=== PATIENT | female | born 1975 | race American Indian/Alaskan Native ===

== ENCOUNTER 2017-08-17 00:32 | Emergency (ER) | payer OTHER ==
[2017-08-17] MEDS ORDERED: TYLENOL PO ONE (00:53)
--- NOTE | 2017-08-17 03:51 | Cat Scan Report ---
FINAL REPORT EXAM: CT HEAD/BRAIN WO CON HISTORY: headache TECHNIQUE: Routine axial imaging was obtained of the brain without IV contrast. FINDINGS: The ventricular system is appropriate in size and is symmetric. There is no evidence of acute stroke or hemorrhage. The basal cisterns appear normal. The visualized sinuses are clear. The mastoid air cells are well pneumatized. IMPRESSION: Within normal limits.
[2017-08-17 08:15] LABS: Eosinophils # (Auto) 0.1 K/mm3 (0.0-0.4); Eosinophils % (Auto) 3.5 % (0.0-4.3); Hematocrit 36.9 % (30.3-42.9); Hemoglobin 11.6 gm/dl (10.1-14.3); Lymphocytes # (Auto) 2.2 K/mm3 (1.2-5.4); Lymphocytes % (Auto) 52.4 % (13.4-35.0); Mean Corpuscular HGB Conc 31 % (30-34); Mean Corpuscular Volume 73 fl (79-97); Monocytes # (Auto) 0.3 K/mm3 (0.0-0.8); Monocytes % (Auto) 7.8 % (0.0-7.3); Platelet Count 233 K/mm3 (140-440); Red Blood Count 5.07 M/mm3 (3.65-5.03); Red Cell Distribution Width 14.6 % (13.2-15.2)
[2017-08-17 08:22] LABS: Alanine Aminotransferase 16 units/L (7-56); Albumin 3.3 g/dL (3.9-5); BUN/Creatinine Ratio 12; Bilirubin,Direct < 0.2 mg/dL (0-0.2); Blood Urea Nitrogen 6 mg/dL (7-17); Calcium 8.3 mg/dL (8.4-10.2); Hemolysis Index 33
[2017-08-17 08:25] LABS: INR 1.03 (0.87-1.13)
[2017-08-17 08:26] LABS: Partial Thromboplastin Time 31.5 Sec. (24.2-36.6)
[2017-08-17 08:35] LABS: Mean Corpuscular Hemoglobin 23 pg (28-32)
[2017-08-17 09:25] LABS: Erythrocyte Sedimentation Rate 6 mm/Hr (0-20)
--- NOTE | 2017-08-17 09:48 | Emergency Department Report ---
ED Headache HPI - General Chief Complaint: Headache Stated Complaint: HEADACHE Time Seen by Provider: 08/17/17 06:18 Source: patient - History of Present Illness Initial Comments: 42-year-old female states that for the last 4 days she has been having posterior neck discomfort that some times radiates up to the right posterior occipital area. Pain is intermittent and somewhat exacerbated by movement. The patient denies fever or chills. She has not had photophobia. She does not have any neck stiffness or difficulty moving her neck. She denies nausea or vomiting. She denies any sort of focal neurological change or change in her vision or speech. She has no difficulty with coordination or gait. Timing/Duration: other (4 days) Quality: moderate Head Injury Location: occipital Recent Head Trauma: chronic headaches (not infrequent headaches) Associated Symptoms: denies symptoms Allergies/Adverse Reactions: Allergies No Known Allergies Allergy (Verified 08/17/17 00:50) Home Medications: Ambulatory Orders Butalb/Acetamin/Caff 50-325-40 [Fioricet] 1 tab PO Q6HR PRN #14 tab 08/17/17 ED Review of Systems ROS: Stated complaint: HEADACHE Other details as noted in HPI Constitutional: denies: chills, fever Eyes: denies: eye pain, eye discharge, vision change ENT: denies: ear pain, throat pain Respiratory: denies: cough, shortness of breath, wheezing Cardiovascular: denies: chest pain, palpitations Endocrine: no symptoms reported Gastrointestinal: denies: abdominal pain, nausea, diarrhea Genitourinary: denies: urgency, dysuria, discharge Musculoskeletal: denies: back pain, joint swelling, arthralgia Skin: denies: rash, lesions Neurological: headache. denies: weakness, paresthesias Psychiatric: denies: anxiety, depression Hematological/Lymphatic: denies: easy bleeding, easy bruising ED Past Medical Hx - Past Medical History Previous Medical History?: No - Surgical History Past Surgical History?: No - Social History Smoking Status: Never Smoker Substance Use Type: None - Medications Home Medications: Home Medications Medication Instructions Recorded Confirmed Last Taken Type Butalb/Acetamin/Caff 50-325-40 1 tab PO Q6HR PRN #14 tab 08/17/17 Unknown Rx [Fioricet] ED Physical Exam - General Limitations: No Limitations General appearance: alert, in no apparent distress - Head Head exam: Present: atraumatic, normocephalic - Eye Eye exam: Present: normal appearance, PERRL, EOMI. Absent: scleral icterus - ENT ENT exam: Present: mucous membranes moist - Neck Neck exam: Present: normal inspection. Absent: tenderness, meningismus - Respiratory Respiratory exam: Present: normal lung sounds bilaterally. Absent: respiratory distress - Cardiovascular Cardiovascular Exam: Present: regular rate, normal rhythm. Absent: systolic murmur, diastolic murmur, rubs, gallop - GI/Abdominal GI/Abdominal exam: Present: soft, normal bowel sounds. Absent: distended, tenderness, guarding, rebound, rigid - Extremities Exam Extremities exam: Present: normal inspection, full ROM, normal capillary refill. Absent: tenderness, calf tenderness - Back Exam Back exam: Present: normal inspection. Absent: CVA tenderness (R), CVA tenderness (L), muscle spasm, paraspinal tenderness, vertebral tenderness - Neurological Exam Neurological exam: Present: alert, oriented X3, CN II-XII intact. Absent: motor sensory deficit - Psychiatric Psychiatric exam: Present: normal affect, normal mood - Skin Skin exam: Present: warm, dry, intact, normal color. Absent: rash ED Course Vital Signs 08/17/17 08/17/17 08/17/17 00:33 02:36 03:00 Temperature 98.6 F 98.4 F Pulse Rate 64 58 L Respiratory 18 19 Rate Blood Pressure 123/61 113/75 Blood Pressure 127/75 [Left] O2 Sat by Pulse 99 99 100 Oximetry 08/17/17 08/17/17 08/17/17 04:03 05:00 06:00 Temperature Pulse Rate Respiratory Rate Blood Pressure 119/78 119/78 136/86 Blood Pressure [Left] O2 Sat by Pulse 100 100 100 Oximetry 08/17/17 08/17/17 08/17/17 07:15 07:17 08:01 Temperature 97.7 F Pulse Rate 60 46 L Respiratory 17 22 Rate Blood Pressure 134/78 119/71 Blood Pressure 134/78 [Left] O2 Sat by Pulse 100 100 98 Oximetry - Reevaluation(s) Reevaluation #1: The patient didn't really require any significant analgesia in the emergency department. Her headache resolved. He is resting comfortably with her or significant other. She looks well and certainly nontoxic. She is appropriate for outpatient management. I do not think the patient's slightly elevated lactic acid level is significant. She has no evidence of service. Her white count is normal and her see our he is normal. Her CRP is normal 08/17/17 09:53 ED Medical Decision Making - Lab Data Result diagrams: 08/17/17 07:28 08/17/17 07:28 Laboratory Results - last 24 hr 08/17/1718 08/17/17 07:28 07:28 07:28 WBC 4.2 L RBC 5.07 H Hgb 11.6 Hct 36.9 MCV 73 L MCH 23 L MCHC 31 RDW 14.6 Plt Count 233 Lymph % (Auto) 52.4 H Eddy % (Auto) 7.8 H Eos % (Auto) 3.5 Baso % (Auto) 1.0 Lymph # 2.2 Eddy # 0.3 Eos # 0.1 Baso # 0.0 Seg Neutrophils % 35.3 L Seg Neutrophils # 1.5 L ESR 6 PT 14.0 INR 1.03 APTT 31.5 Sodium 140 Potassium 4.0 Chloride 102.8 Carbon Dioxide 24 Anion Gap 17 BUN 6 L Creatinine 0.5 L Estimated GFR > 60 BUN/Creatinine Ratio 12 Glucose 70 Lactic Acid Calcium 8.3 L Total Bilirubin 0.30 Direct Bilirubin < 0.2 AST 21 ALT 16 Alkaline Phosphatase 49 C-Reactive Protein 0.10 Total Protein 6.6 Albumin 3.3 L Albumin/Globulin Ratio 1.0 08/17/17 07:28 WBC RBC Hgb Hct MCV MCH MCHC RDW Plt Count Lymph % (Auto) Eddy % (Auto) Eos % (Auto) Baso % (Auto) Lymph # Eddy # Eos # Baso # Seg Neutrophils % Seg Neutrophils # ESR PT INR APTT Sodium Potassium Chloride Carbon Dioxide Anion Gap BUN Creatinine Estimated GFR BUN/Creatinine Ratio Glucose Lactic Acid 2.10 H* Calcium Total Bilirubin Direct Bilirubin AST ALT Alkaline Phosphatase C-Reactive Protein Total Protein Albumin Albumin/Globulin Ratio - Radiology Data Radiology results: report reviewed (CT the head no acute process) Critical care attestation.: If time is entered above; I have spent that time in minutes in the direct care of this critically ill patient, excluding procedure time. ED Disposition Clinical Impression: Cephalalgia Qualifiers: Headache type: unspecified Headache chronicity pattern: chronic headache Intractability: not intractable Qualified Code(s): R51 - Headache Disposition: DC-01 TO HOME OR SELFCARE Is pt being admited?: No Does the pt Need Aspirin: No Condition: Stable Instructions: Acute Headache (ED) Additional Instructions: Return to the emergency department had a fever or chills, vomiting or worsening headache. Further evaluation by a neurologist may be necessary. Certainly follow up with your primary care physician. Return any acute change or problems /worsening. Prescriptions: Butalb/Acetamin/Caff 50-325-40 [Fioricet] 1 tab PO Q6HR PRN #14 tab PRN Reason: Headache Referrals: IGNACIO BRITT MD [Primary Care Provider] - 2-3 Days Time of Disposition: 09:55
[2017-08-17 11:11] VITALS: BP 138/82
== END 2017-08-17 10:41 | disposition home or self-care (01) ==
LOC: ED 00:32
DX: G44.099 Other trigeminal autonomic cephalgias (TAC), not intractable (principal)
CPT/HCPCS: 36415; 70450; 80048; 80074; 82140; 85025; 85610; 85652; 85730; 86140; 99284

== ENCOUNTER 2020-01-07 06:49 | Day surgery (SDC) | payer OTHER ==
--- NOTE | 2020-01-04 11:22 | History and Physical Report ---
History of Present Illness History of present illness: PT is a 44yo with LOU 2 at 10 oclock and LOU 1 at 6 during recent colpo. ECC was neg. Past History Past Medical History: no pertinent history Past Surgical History: no surgical history Social history: no significant social history - Obstetrical History : 2 Para: 2 Medications and Allergies Allergies Allergy/AdvReac Type Severity Reaction Status Date / Time No Known Allergies Allergy Verified 08/17/17 00:50 Home Medications Medication Instructions Recorded Confirmed Last Taken Type Vitamin D2 1 cap PO 1XW 12/31/19 12/31/19 Unknown History Review of Systems All systems: negative (except HPI) - Physical Exam Cervix: Positive: other (normal on gross exam). Negative: lesion, discharge Results All other labs normal. Assessment and Plan - Patient Problems (1) Moderate cervical dysplasia Status: Acute Plan to address problem: PT is for a LEEP on 01/06
[~2020-01-07 06:49] MED LIST: LACTATED RINGERS 1,000 ML IV SCH; MIDAZOLAM 2 MG/2 ML INJ IV NR
[2020-01-07] MEDS ORDERED: LACTATED RINGERS 1,000 ML IV SCH (07:55)
[2020-01-07] MEDS ORDERED: fentaNYL 100 MCG/2 ML INJ IV PRN (08:31)
[2020-01-07] MEDS ORDERED: ONDANSETRON 4 MG/2 ML INJ IV PRN (08:31)
--- NOTE | 2020-01-07 08:31 | Anesthesia Day of Surgery ---
Anesthesia Day of Surgery - Day of Surgery Patient Examined: Yes Patient H&P Reviewed: Yes Patient is NPO: Yes
--- NOTE | 2020-01-07 08:31 | Anesthesia Consultation ---
Anesthesia Consult and Med Hx Date of service: 01/07/20 - Airway Anesthetic Teeth Evaluation: Good ROM Head & Neck: Adequate Mental/Hyoid Distance: Adequate Mallampati Class: Class II Intubation Access Assessment: Probably Good - Pulmonary Exam CTA: Yes - Cardiac Exam Cardiac Exam: RRR - Pre-Operative Health Status ASA Pre-Surgery Classification: ASA1 Proposed Anesthetic Plan: General - Pulmonary Hx Smoking: No Hx Respiratory Symptoms: No - Cardiovascular System Hx Hypertension: No Hx Heart Attack/AMI: No - Central Nervous System CVA: No - Gastrointestinal Hx Gastroesophageal Reflux Disease: No - Endocrine Hx Renal Disease: No Hx Liver Disease: No Hx Insulin Dependent Diabetes: No Hx Non-Insulin Dependent Diabetes: No Hx Thyroid Disease: No - Hematic Hx Anemia: Yes - Other Systems Hx Obesity: Yes (BMI 33) - Additional Comments Anesthesia Medical History Comments: No hx anesthetic complications.
[2020-01-07] MEDS ORDERED: LIDOCAINE 1%/EPINEPHRINE 1:100,000 VIAL (20 ML) INFILTRATI ONE ×2 (09:16→09:45)
[2020-01-07] MEDS ORDERED: FERRIC SUBSULFATE TOPICAL SOLN 8 ML TP ONE ×2 (09:16→09:45)
[2020-01-07] MEDS ORDERED: POTASSIUM IODIDE/IODINE (LUGOLS) 30 ML TP ONE ×2 (09:16→09:45)
[2020-01-07] MEDS ORDERED: fentaNYL 100 MCG/2 ML INJ ONE (09:25)
[2020-01-07] MEDS ORDERED: propofoL 200 MG/20 ML VIAL IV ONE (09:25)
[2020-01-07] MEDS ORDERED: KETAMINE/STERILE WATER 50 MG/ML SYRINGE ONE (09:25)
[2020-01-07] MEDS ORDERED: KETOROLAC 30 MG/1 ML INJ ONE (09:32)
[2020-01-07] MEDS ORDERED: dexAMETHasone 20 MG/5 ML VIAL ONE (09:32)
[2020-01-07] MEDS ORDERED: ONDANSETRON 4 MG/2 ML INJ ONE (09:32)
[2020-01-07] MEDS ORDERED: GLYCOPYRROLATE 0.4 MG/2 ML INJ ONE (09:33)
[2020-01-07] MEDS ORDERED: SODIUM CHLORIDE 0.9% IRR 1,500 ML BOTTLE IR ONE (09:45)
--- NOTE | 2020-01-07 10:07 | Post Operative Note ---
Date of procedure: 01/07/20 Pre-op diagnosis: Moderate cervical dysplasia Post-op diagnosis: other (Per pathology) Findings: Grossly normal looking cervix. Small areas of decreased Lugol's staining around the cervicovaginal junction. Procedure: Indication: Patient is a 44-year-old who is for a LEEP. Patient with LOU-2 at 10:00 and LOU-1 at 6:00 on colposcopy. Negative ECC. Procedure: Patient taken to the operating room and prepped and draped in the u sual fashion. Lugol's solution applied to the cervix and a single-tooth tenaculum applied at lip of the cervix. Attention was turned to applying the lidocaine with epinephrine which was applied at the 2, 4, 8 and 10:00 positions in the cervical stroma. 10 cc total were used. The white loop was then selected. The LEEP was performed obtaining a main segment and a small anterior segment. Anterior segment obtained since the anterior portion of the main specimen was smaller than expected. Both were obtained in a single pass without difficulty. Stitch placed at 6:00 on the main segment At this point attention was turned to the surrounding ectocervical mucosal edge which was cauterized circumferentially with the rollerball. Attention was then turned to any areas of oozing in the cervical crater which were also cauterized with the rollerball. After this was done, good hemostasis noted throughout. Monsel solution was placed in the cervical crater and the procedure was concluded. Patient tolerated the procedure well. All instrument lap counts were correct. Patient taken to the recovery in stable condition. Anesthesia: [place] Surgeon: JUAN ANTONIO PLAZA Estimated blood loss: minimal Pathology: list (1) LEEP with a stitch at 6:00 2) anterior segment) Specimen disposition: to lab Condition: stable Disposition: PACU
--- NOTE | 2020-01-07 10:08 | Short Stay Summary ---
Short Stay Documentation Date of service: 01/07/20 Narrative H&P: Patient is status post an uncomplicated LEEP. Please see H&P and operative report for details. Patient sent home in stable condition and advised to follow-up in the office in 4 weeks. - History H&P: dictated Social history: no significant social history - Allergies and Medications Current Medications: Allergies No Known Allergies Allergy (Verified 08/17/17 00:50) Home Medications Medication Instructions Recorded Confirmed Last Taken Type Vitamin D2 1 cap PO 1XW 12/31/19 12/31/19 Unknown History Active Medications Fentanyl (Sublimaze) 50 mcg IV Q5MIN PRN PRN Reason: Pain , Severe (7-10) Stop: 01/07/20 23:00 Lactated Ringer's (Lactated Ringers) 1,000 mls @ 100 mls/hr IV DIRECT COLBY Stop: 01/07/20 23:59 Midazolam HCl (Versed) 2 mg IV PREOP NR Stop: 01/07/20 23:00 Ondansetron HCl (Zofran) 4 mg IV ONCE PRN PRN Reason: Nausea And Vomiting - Disposition Condition at discharge: Stable Disposition: DC-01 TO HOME OR SELFCARE - Discharge Diagnoses (1) Moderate cervical dysplasia Status: Acute Short Stay Discharge Plan Follow up with: IGNACIO BRITT MD [Primary Care Provider] - 7 Days
[2020-01-07 11:18] VITALS: BP 141/79
--- NOTE | 2020-01-07 13:54 | Post Anesthesia Evaluation ---
- Post Anesthesia Evaluation Patient Participated: Yes Airway Patent: Yes Stable Respiratory Function: Yes Nausea/Vomiting: No Temp > 96.8F: Yes Pain Manageable: Yes Adequeate Hydration: Yes Anesthesia Complications: No
== END 2020-01-07 11:50 | disposition home or self-care (01) ==
LOC: OR 06:49
PROVIDERS: ATTEND Obstetrics & Gynecology
DX: N87.1 Moderate cervical dysplasia (principal); E66.9 Obesity, unspecified; Z98.891 History of uterine scar from previous surgery; Z79.899 Other long term (current) drug therapy; Z98.890 Other specified postprocedural states; Z86.2 Personal history of diseases of the blood and blood-forming organs and certain disorders involving the immune mechanism; Z68.33 Body mass index [BMI] 33.0-33.9, adult
CPT/HCPCS: 57522; 81025; 88305; J1100; J1885; J2250; J2405; J2704; J3010; J3490; J7120

== ENCOUNTER 2020-04-18 17:50 | Emergency (ER) | payer OTHER ==
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
[2020-04-18] MEDS ORDERED: ONDANSETRON 4 MG ODT TAB PO ONE (21:03)
[2020-04-18] MEDS ORDERED: oxyCODONE /ACETAMINOPHEN 5-325MG TAB PO ONE (21:04)
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
[2020-04-19 01:00] VITALS: BP 138/72
== END 2020-04-19 02:23 | disposition other institution (70) ==
LOC: ED 17:50
DX: S22.41XA Multiple fractures of ribs, right side, initial encounter for closed fracture (principal); J93.9 Pneumothorax, unspecified; G43.909 Migraine, unspecified, not intractable, without status migrainosus; Z79.899 Other long term (current) drug therapy; V49.59XA Passenger injured in collision with other motor vehicles in traffic accident, initial encounter; Y92.410 Unspecified street and highway as the place of occurrence of the external cause; Y93.89 Activity, other specified; Y99.8 Other external cause status
CPT/HCPCS: 70450; 71111; 72125; Q0162